=== PATIENT | female | born 1965 | race Asian ===

== ENCOUNTER 2025-03-23 13:37 | Outpatient (CLI) | payer BC | END 2025-03-23 13:38 | disposition home or self-care (01) | LOC: SCSULT 13:37 | PROVIDERS: ATTEND Otolaryngology Plastic Surgery within the Head & Neck | DX: E04.1 Nontoxic single thyroid nodule (principal); R93.89 Abnormal findings on diagnostic imaging of other specified body structures | CPT/HCPCS: 76536 ==